=== PATIENT | female | born 1990 | race Caucasian/White ===

== ENCOUNTER 2025-03-14 16:18 | Emergency (ER) | payer MEDICAID, OTHER ==
[~2025-03-14] VITALS: Ht 160 cm; Wt 87.0 kg
[2025-03-14 16:20] VITALS: TEMP 99.1
[2025-03-14] MEDS: IBUPROFEN 800 MG TAB PO ONE (16:50)
[2025-03-14 16:51] VITALS: PULSE 102; RESP 18; O2SAT 98
[2025-03-14 17:08] LABS: Basophils # (auto) 0 10 ^3/uL (0-0.2); Basophils % (auto) 0.3 % (0.0-2.0); Eosinophils # (auto) 0.1 10 ^3/uL (0-0.8); Eosinophils % (auto) 0.4 % (0.0-7.0); Hematocrit 43.8 % (36.0-46.0); Hemoglobin 14.8 g/dL (12.2-16.2); Lymphocytes % (auto) 12.7 % (10.0-50.0); Mean Corpuscular Hemoglobin 30.7 pg (28.0-32.0); Mean Corpuscular Hgb Conc. 33.9 g/dL (32.0-36.0); Mean Corpuscular Volume 90.6 fL (80.0-100.0); Monocytes # (auto) 1.2 10 ^3/uL (0-1.3); Monocytes % (auto) 7.7 % (0.0-12.0); Neutrophils # (auto) 12.6 10 ^3/uL (1.6-8.6); Neutrophils % (auto) 78.9 % (37.0-80.0); Nucleated Red Blood Cells % 0.1 %; Platelet Count (auto) 259 10^3/uL (140-450); Red Blood Cells 4.84 10^6/uL (4.0-5.20); Red Cell Distribution Width 12.9 % (11.8-14.3); White Blood Cell 15.9 10^3/uL (4.4-10.8)
--- NOTE | 2025-03-14 17:08 | DVH ---
CHEST RADIOGRAPH Indication: gen weak Technique: Single frontal view of the chest was obtained COMPARISON: None FINDINGS: Lines and Tubes: None Lungs: Clear Pleura: No effusion. No pneumothorax. Cardiomediastinal contours: Unremarkable Bones: Unremarkable IMPRESSION: 1. No acute disease.
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
[2025-03-14 17:19] LABS: Anion Gap 10 (5-15); Calcium 10.4 mg/dL (8.7-10.4); Carbon Dioxide 22 mmol/L (20-31)
[2025-03-14 17:24] LABS: Blood Urea Nitrogen 11 mg/dL (9-23); Chloride 114 mmol/L (98-107); Glucose 106 mg/dL (74-106); Sodium 146 mmol/L (136-145)
[2025-03-14 17:27] LABS: Urine Bacteria None Seen /hpf (None Seen)
[2025-03-14 17:32] LABS: Urine Blood Negative /uL (Negative); Urine Clarity Clear (Clear); Urine Color Yellow (Yellow); Urine Mucus FEW (None Seen); Urine Protein, UAD Negative (Negative); Urine Specific Gravity 1.027 (1.001-1.035); Urine Squamous Epithelial Cell FEW /hpf (<5); Urine Urobilinogen Normal (Negative); Urine WBC 2 /HPF (0-5); Urine pH 5.5 (5.0-9.0)
[2025-03-14 18:13] VITALS: BP 120/84; PULSE 98; RESP 18; O2SAT 96
== END 2025-03-14 18:17 | disposition home or self-care (01) ==
LOC: EDBD 16:18 → ER 16:18
DX: T67.5XXA Heat exhaustion, unspecified, initial encounter (principal); R20.0 Anesthesia of skin; M79.18 Myalgia, other site; Z88.0 Allergy status to penicillin; Z88.8 Allergy status to other drugs, medicaments and biological substances; X30.XXXA Exposure to excessive natural heat, initial encounter; Y93.89 Activity, other specified; Y92.89 Other specified places as the place of occurrence of the external cause; Y99.8 Other external cause status
CPT/HCPCS: 36415; 71045; 80048; 81001; 85025